=== PATIENT | female | born 1980 | race Hispanic/Latino ===

== ENCOUNTER 2018-04-05 07:56 | Emergency (ER) | payer BC, OTHER ==
[2018-04-05] MEDS ORDERED: KETOROLAC 30 MG/ML INJ ONE (08:38)
[2018-04-05] MEDS ORDERED: ONDANSETRON 4 MG/2 ML VIAL ONE (08:38)
[2018-04-05] MEDS ORDERED: NA CHLORIDE 0.9% 1,000 ML ONE (08:39)
[2018-04-05] MEDS ORDERED: FAMOTIDINE 20 MG/2 ML VIAL IV ONE (08:39)
[2018-04-05 09:47] LABS: Potassium 3.6 mmol/L (3.5-5.1); Sodium Level 137 mmol/L (136-145)
[2018-04-05 09:50] LABS: Albumin 3.7 g/dL (3.4-5.0); BUN Blood Urea Nitrogen 10 mg/dL (7-18); Bicarbonate 24 mmol/L (21-32); Lipase 94 U/L (73-393)
[2018-04-05 09:51] LABS: Amylase Level 27 U/L (25-115)
[2018-04-05 09:52] LABS: Bilirubin Direct 0.2 mg/dL (0-0.2)
[2018-04-05 09:53] LABS: ALT/SGPT 83 U/L (12-78); AST/SGOT 60 U/L (15-37)
[2018-04-05 09:54] LABS: Bilirubin Total 0.7 mg/dL (0.2-1.0)
[2018-04-05 09:55] LABS: Alkaline Phosphatase 55 U/L (45-117)
[2018-04-05 11:14] LABS: Absolute Lymphocytes (CBC) 0.4 K/uL (0.7-4.9); Absolute Monocytes 0.2 K/uL (0.1-1.3); Absolute Neutrophil 4.8 K/uL (1.8-8.0); Basophils % 0.5 % (0-1.3); Eosinophils % 0.4 % (0-4.4); Hematocrit 38.6 % (36.0-45.0); Lymphocytes % 6.8 % (15.3-44.8); MCH 30.1 pg (27.0-35.0); MCV 86.2 fL (80-100); MPV 9.7 fL (7.6-11.3); Monocytes % 4.4 % (3.3-12.3); RBC Red Blood Cell Count 4.48 M/uL (3.86-4.86)
[2018-04-05 11:19] LABS: Blood Morphology Comment NOT SEEN (NOT SEEN); Platelet Estimate ADEQ; Urine White Blood Cell Casts OK
[2018-04-05 11:31] LABS: Urine Bacteria <20 /HPF (<20); Urine RBC <5 /HPF (NONE SEEN)
[2018-04-05 11:32] LABS: Urine Culture Reflex Order NOT NEEDED
--- NOTE | 2018-04-05 12:04 | ER ---
Nurse's Notes [facility] Name: Rubina Guerra Age: 38 yrs Sex: Female : 1980 Arrival Date: 04/05/2018 Time: 08:03 Bed 19 Private MD: Hay Allen Diagnosis: Nausea and vomiting;Abdominal and pelvic pain Presentation: 04/05 08:19 Presenting complaint: Patient states: has had 10+ episodes of vomiting since last iw night, unable to tolerate fluids, also has bloating and burning upper abd pain, hx of IBS, no diarrhea, c/o headache, fatigue, chills, joint pain. Transition of care: patient was not received from another setting of care. Onset of symptoms was April 05, 2018. Risk Assessment: Do you want to hurt yourself or someone else? Patient reports no desire to harm self or others. Initial Sepsis Screen: Does the patient meet any 2 criteria? No. Patient's initial sepsis screen is negative. Does the patient have a suspected source of infection? No. Patient's initial sepsis screen is negative. Care prior to arrival: None. 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 - Social history:: Smoking status: Patient/guardian denies using tobacco. - Ebola Screening: : Patient negative for fever greater than or equal to 101.5 degrees Fahrenheit, and additional compatible Ebola Virus Disease symptoms Patient denies exposure to infectious person Patient denies travel to an Ebola-affected area in the 21 days before illness onset No symptoms or risks identified at this time. Screenin:30 Abuse screen: Denies threats or abuse. Nutritional screening: No deficits noted. em Tuberculosis screening: No symptoms or risk factors identified. Fall Risk None identified. Assessment: 11:26 Reassessment: see paper chart for assessment. em Vital Signs: 08:22 BP 161 / 74; Pulse 120; Resp 16 S; Temp 98.9(O); Pulse Ox 97% on R/A; Weight 116.57 kg; iw Height 5 ft. 4 in. (162.56 cm); Pain 03/14; 08:22 Body Mass Index 44.11 (116.57 kg, 162.56 cm) iw ED Course: 08:03 Patient arrived in ED. mr 08:04 Hay Allen DO is Private Physician. mr 08:08 Wilton Briones MD is Attending Physician. kdr 08:21 Triage completed. iw 08:22 Arm band placed on. iw 08:30 Patient has correct armband on for positive identification. Call light in reach. Side em rails up X 1. Side rails up X2. Adult w/ patient. 08:32 Koko Jacobs LVN is Primary Nurse. em 09:00 No provider procedures requiring assistance completed. Inserted saline lock: 20 gauge em in left antecubital area, using aseptic technique. Blood collected. 09:00 Initial lab(s) drawn, by me, sent to lab. em 10:57 Hay Allen DO is Referral Physician. kdr Administered Medications: 09:00 Drug: NS 0.9% 1000 ml Route: IV; Rate: 1 bolus; Site: left antecubital; iw 11:25 Follow up: IV Status: Completed infusion; IV Intake: 1000ml em : Drug: Zofran 4 mg Route: IVP; Site: left antecubital; iw :25 Follow up: Response: No adverse reaction; Nausea is decreased em :00 Drug: Pepcid 20 mg Route: IVP; Site: left antecubital; iw 11: Follow up: Response: No adverse reaction; Pain is decreased em :00 Drug: TORadol 30 mg Route: IVP; Site: left antecubital; iw 11:26 Follow up: Response: No adverse reaction; Pain is decreased em Intake: :25 IV: 1000ml; Total: 1000ml. em Outcome: :00 Discharged to home ambulatory. em 09:00 Condition: good 09:00 Discharge instructions given to patient, Instructed on discharge instructions, follow up and referral plans. medication usage, Demonstrated understanding of instructions, follow-up care, medications, Prescriptions given X 2. 10:58 Discharge ordered by . kdr 11:27 Patient left the ED. em Signatures: Wilton Briones MD MD kdr Rivera, Maria mr Reynaldo, Koko, LENS CLEANER LENS CLEANER Glory Blake, RN RN iw
--- NOTE | 2018-04-05 12:05 | EDPHYS ---
Physician Documentation [facility] Name: Rubina Guerra Age: 38 yrs Sex: Female : 1980 Arrival Date: 04/05/2018 Time: 08:03 Bed 19 Private MD: Alejandro [facility] ED Physician Wilton Briones HPI: 04/05 09:10 This 38 yrs old Female presents to ER via Ambulatory with complaints of kdr Nausea/Vomiting, Headache, Ear Pain. 09:10 The patient presents to the emergency department with nausea, that is moderate, kdr vomiting, that is intermittent, diarrhea, that is intermittent, abdominal pain, of the right upper quadrant and left upper quadrant. Onset: The symptoms/episode began/occurred last night. Possible causes: unknown, bad food exposure. The symptoms are aggravated by nothing. food , The symptoms are alleviated by nothing. Associated signs and symptoms: Pertinent positives: abdominal pain, diarrhea, nausea, vomiting, Pertinent negatives: constipation, dysuria, fever, GI bleeding, vaginal discharge. Severity of symptoms: At their worst the symptoms were moderate severe just prior to arrival, in the emergency department the symptoms have improved mildly. The patient has experienced a previous episode, approximately 17 years ago. The patient has not recently seen a physician. 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 - Social history:: Smoking status: Patient/guardian denies using tobacco. - Ebola Screening: : Patient negative for fever greater than or equal to 101.5 degrees Fahrenheit, and additional compatible Ebola Virus Disease symptoms Patient denies exposure to infectious person Patient denies travel to an Ebola-affected area in the 21 days before illness onset No symptoms or risks identified at this time. ROS: 09:10 Constitutional: Negative for fever, chills, and weight loss, Eyes: Negative for injury, kdr pain, redness, and discharge, ENT: Negative for injury, pain, and discharge, Neck: Negative for injury, pain, and swelling, Cardiovascular: Negative for chest pain, palpitations, and edema, Respiratory: Negative for shortness of breath, cough, wheezing, and pleuritic chest pain, Back: Negative for injury and pain, : Negative for injury, bleeding, discharge, and swelling, MS/Extremity: Negative for injury and deformity, Skin: Negative for injury, rash, and discoloration, Psych: Negative for depression, anxiety, suicide ideation, homicidal ideation, and hallucinations, Allergy/Immunology: Negative for hives, rash, and allergies, Endocrine: Negative for neck swelling, polydipsia, polyuria, polyphagia, and marked weight changes, Hematologic/Lymphatic: Negative for swollen nodes, abnormal bleeding, and unusual bruising. 09:10 Abdomen/GI: Positive for abdominal pain, nausea, vomiting, and diarrhea, Negative for constipation, abdominal distension, anorexia, dysphagia, hematemesis, black/tarry stool, rectal pain, rectal bleeding, bowel incontinence. 09:10 Neuro: Positive for headache, Hurst all over - even her hair when she put it up.. Exam: 09:10 Constitutional: This is a well developed, well nourished patient who is awake, alert, kdr and in no acute distress. Head/Face: Normocephalic, atraumatic. Eyes: Pupils equal round and reactive to light, extra-ocular motions intact. Lids and lashes normal. Conjunctiva and sclera are non-icteric and not injected. Cornea within normal limits. Periorbital areas with no swelling, redness, or edema. Neck: Trachea midline, no thyromegaly or masses palpated, and no cervical lymphadenopathy. Supple, full range of motion without nuchal rigidity, or vertebral point tenderness. No Meningismus. Chest/axilla: Normal chest wall appearance and motion. Nontender with no deformity. No lesions are appreciated. Cardiovascular: Regular rate and rhythm with a normal S1 and S2. No gallops, murmurs, or rubs. Normal PMI, no JVD. No pulse deficits. Respiratory: Lungs have equal breath sounds bilaterally, clear to auscultation and percussion. No rales, rhonchi or wheezes noted. No increased work of breathing, no retractions or nasal flaring. Back: No spinal tenderness. No costovertebral tenderness. Full range of motion. Skin: Warm, dry with normal turgor. Normal color with no rashes, no lesions, and no evidence of cellulitis. MS/ Extremity: Pulses equal, no cyanosis. Neurovascular intact. Full, normal range of motion. Neuro: Awake and alert, GCS 15, oriented to person, place, time, and situation. Cranial nerves II-XII grossly intact. Motor strength 5/5 in all extremities. Sensory grossly intact. Cerebellar exam normal. Normal gait. Psych: Awake, alert, with orientation to person, place and time. Behavior, mood, and affect are within normal limits. 09:10 Abdomen/GI: Inspection: abdomen appears normal, obese Bowel sounds: active, all quadrants, Palpation: soft, mild abdominal tenderness, in the epigastric area, right upper quadrant and left upper quadrant, rebound tenderness, is not appreciated. Vital Signs: 08:22 BP 161 / 74; Pulse 120; Resp 16 S; Temp 98.9(O); Pulse Ox 97% on R/A; Weight 116.57 kg; iw Height 5 ft. 4 in. (162.56 cm); Pain 8/10; 08:22 Body Mass Index 44.11 (116.57 kg, 162.56 cm) iw MDM: 09:10 Data reviewed: vital signs, nurses notes. kdr 10:56 ED course: The patient is feeling much better and has had no further n/v/d, pain 10. kdr Asking when she can go.. 10:58 Patient medically screened. kdr 04/05 08:19 Order name: Amylase, Serum iw 04/05 08:19 Order name: Basic Metabolic Panel iw 04/05 08:19 Order name: CBC with Diff 04/05 08:19 Order name: Creatinine for Radiology iw 04/05 08:19 Order name: Hepatic Function iw 04/05 08:19 Order name: Lipase iw 04/05 08:19 Order name: Urine Microscopic Only iw 04/05 08:19 Order name: IV Saline Lock; Complete Time: 11:26 iw 04/05 08:19 Order name: Labs collected and sent; Complete Time: 11:26 iw 04/05 08:19 Order name: Urine Dipstick-Ancillary (obtain specimen); Complete Time: 11:26 iw Administered Medications: 09:00 Drug: NS 0.9% 1000 ml Route: IV; Rate: 1 bolus; Site: left antecubital; iw 11:25 Follow up: IV Status: Completed infusion; IV Intake: 1000ml em 09:00 Drug: Zofran 4 mg Route: IVP; Site: left antecubital; iw 11:25 Follow up: Response: No adverse reaction; Nausea is decreased em 09:00 Drug: Pepcid 20 mg Route: IVP; Site: left antecubital; iw 11:26 Follow up: Response: No adverse reaction; Pain is decreased em 09:00 Drug: TORadol 30 mg Route: IVP; Site: left antecubital; iw 11:26 Follow up: Response: No adverse reaction; Pain is decreased em Disposition: 04/05/18 10:58 Discharged to Home. Impression: Nausea and vomiting, Abdominal and pelvic pain. - Condition is Stable. - Discharge Instructions: Abdominal Pain, Adult, [id number]. - Prescriptions for promethazine 25 mg Oral Tablet - take 1 tablet by ORAL route every 6 hours As needed; 20 tablet. Bentyl 20 mg Oral Tablet - take 1 tablet by ORAL route every 6 hours As needed; 20 tablet. - Medication Reconciliation Form, Thank You Letter, Antibiotic Education, Prescription Opioid Use form. - Follow up: Hay Allen DO; When: 2 - 3 days; Reason: If symptoms return, Further diagnostic work-up, Recheck today's complaints, Continuance of care, Re-evaluation by your physician. - Problem is new. - Symptoms have improved. Signatures: Dispatcher [employer] Witlon Goncalves MD MD kdr Munoz, Edgar, WHEEL PRESSER WHEEL PRESSER em Glory Hall, RN RN iw Corrections: (The following items were deleted from the chart) 11:27 10:58 04/05/2018 10:58 Discharged to Home. Impression: Nausea and vomiting; Abdominal em and pelvic pain. Condition is Stable. Forms are Medication Reconciliation Form, Thank You Letter, Antibiotic Education, Prescription Opioid Use. Follow up: Hay Allen; When: 2 - 3 days; Reason: If symptoms return, Further diagnostic work-up, Recheck today's complaints, Continuance of care, Re-evaluation by your physician. Problem is new. Symptoms have improved. kdr
[2018-04-05 13:04] LABS: Urine Blood NEGATIVE (NEG); Urine Glucose NEGATIVE (NEG); Urine Protein TRACE (NEG); Urine Specific Gravity 1.015 (1.005-1.030); Urine pH 8.5 (5.0-7.0)
[2018-04-05 13:48] LABS: Protein, Total 7.5 g/dL (6.4-8.2)
[2018-04-05 13:49] LABS: Glucose Level 134 mg/dL (74-106)
== END 2018-04-05 11:27 | disposition home or self-care (01) ==
LOC: ER 07:56
DX: R11.2 Nausea with vomiting, unspecified (principal); R10.12 Left upper quadrant pain; R10.11 Right upper quadrant pain; R10.2 Pelvic and perineal pain
CPT/HCPCS: 36415; 80048; 80076; 81003; 81015; 82150; 83690; 85025; 87086; 87088; 96361; 96374; 96375; 99284; J2405; J7030

== ENCOUNTER 2019-09-01 20:32 | Emergency (ER) | payer BC, OTHER ==
--- NOTE | 2019-09-01 22:41 | EDPHYS ---
Physician Documentation [facility] Name: Rubina Guerra Age: 39 yrs Sex: Female : 1980 Arrival Date: 09/01/2019 Time: 20:34 Bed 11 Private MD: ED Physician Ike Saldana HPI: 09/01 22:55 This 39 yrs old Female presents to ER via Wheelchair with complaints of Back la1 Pain. 22:55 The patient presents with pain and spasm, pain. The symptoms are located in the low la1 back. Onset: The symptoms/episode began/occurred this morning. The pain radiates to the right leg and left leg. Associated signs and symptoms: Pertinent negatives: abdominal pain, incontinence, numbness, tingling, urinary retention, weakness. The problem was sustained when bending over. Modifying factors: The patient symptoms are alleviated by remaining still, the patient symptoms are aggravated by any movement, bending, coughing, movement. Severity of symptoms: At their worst the symptoms were moderate, in the emergency department the symptoms have improved. The patient has experienced similar episodes in the past. 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 - Coronavirus screen:: The patient has NOT traveled to [place], [place], or [place] in the past 14 days. The patient has NOT had contact with known/suspected case of Coronavirus?. - Social history:: Smoking status: Patient denies any tobacco usage or history of. - Ebola Screening: : Patient negative for fever greater than or equal to 101.5 degrees Fahrenheit, and additional compatible Ebola Virus Disease symptoms Patient denies exposure to infectious person Patient denies travel to an Ebola-affected area in the 21 days before illness onset No symptoms or risks identified at this time. ROS: 22:56 Constitutional: Negative for fever, chills, and weight loss, Eyes: Negative for injury, la1 pain, redness, and discharge, ENT: Negative for injury, pain, and discharge, Neck: Negative for injury, pain, and swelling, Cardiovascular: Negative for chest pain, palpitations, and edema, Respiratory: Negative for shortness of breath, cough, wheezing, and pleuritic chest pain, Abdomen/GI: Negative for abdominal pain, nausea, vomiting, diarrhea, and constipation, : Negative for injury, bleeding, discharge, and swelling, MS/Extremity: Negative for injury and deformity, Skin: Negative for injury, rash, and discoloration, Neuro: Negative for headache, weakness, numbness, tingling, and seizure. 22:56 Back: Positive for pain at rest, pain with movement. Exam: 22:56 Constitutional: This is a well developed, well nourished patient who is awake, alert, la1 and in no acute distress. Eyes: . Cornea within normal limits. Periorbital areas with no swelling, redness, or edema. ENT: Mucous membranes moist. Neck: Trachea midline No Meningismus. Chest/axilla: Normal chest wall appearance and motion. Nontender with no deformity. No lesions are appreciated. Cardiovascular: Regular rate and rhythm with a normal S1 and S2. Respiratory: Lungs have equal breath sounds bilaterally, clear to auscultation 22:56 Back: ROM is painful, with all movement, normal spinal alignment noted, CVA tenderness, is absent, muscle spasm, is appreciated in the right low back, Straight leg raises: pain bilaterally. 22:56 Neuro: Orientation: is normal, Mentation: is normal, Memory: is normal, Cranial nerves: CN II- XII are normal as tested, Motor: is normal, Gait: is steady. Vital Signs: 21:21 BP 120 / 72; Pulse 82; Resp 17 S; Temp 98.8(O); Pulse Ox 100% on R/A; Weight 122.47 kg ca1 (R); Height 5 ft. 4 in. (162.56 cm) (R); 23:07 Pain 5/10; bb3 23:07 Pain 6/10; bb3 23:08 Pulse 88; Resp 17; Pulse Ox 99% ; Pain 6/10; bb3 21:21 Body Mass Index 46.34 (122.47 kg, 162.56 cm) ca1 MDM: 22:10 Patient medically screened. la1 22:39 Data reviewed: vital signs, nurses notes, and as a result, I will discharge patient. la1 Data interpreted: Pulse oximetry: on room air is 100 %. Interpretation: normal. Counseling: I had a detailed discussion with the patient and/or guardian regarding: the historical points, exam findings, and any diagnostic results supporting the discharge/admit diagnosis, the need for outpatient follow up, a family practitioner, to return to the emergency department if symptoms worsen or persist or if there are any questions or concerns that arise at home. Special discussion: Based on the patient's Hx, exam, and Dx evaluation, there is no indication for emergent surgery or inpatient Tx. It is understood by the patient/guardian that if the Sx's persist or worsen they need to return immediately for re-evaluation. Administered Medications: 22:47 Drug: Lidoderm 5 % (700 mg/patch) 1 patches Route: Topical; Site: affected area; bb3 23:07 Follow up: Pain 5/10 Adult; Response: No adverse reaction; Marked relief of symptoms; bb3 Pain is decreased 22:48 Drug: [place] (7.5 mg-325 mg) 1 tabs Route: PO; bb3 23:08 Follow up: Pulse 88 bpm; Resp 17 bpm; Pulse Ox 99% ; Pain 6/10 Adult bb3 23:08 Follow up: Response: No adverse reaction; Marked relief of symptoms; Pain is decreased bb3 22:48 Drug: Flexeril 10 mg Route: PO; bb3 23:07 Follow up: Pain 6/10 Adult; Response: No adverse reaction; Marked relief of symptoms; bb3 Pain is decreased Disposition: 09/02 05:19 Co-signature as Attending Physician, Ike Saldana MD I agree with the assessment and tw4 plan of care. Disposition: 09/01/19 22:40 Discharged to Home. Impression: Low back pain. - Condition is Stable. - Discharge Instructions: Back Pain, Adult, Musculoskeletal Pain, Back Injury Prevention, Uhlk-pe-Tyaq, Back Exercises, Mhfw-[id number]. - Prescriptions for Tylenol- Codeine #3 300-30 mg Oral Tablet - take 2 tablet by ORAL route every 6 hours As needed; 6 tablet. Cyclobenzaprine 10 mg Oral Tablet - take 1 tablet by ORAL route every 8 hours As needed; 30 tablet. Medrol (Ayan) 4 mg Oral Tablets, Dose Pack - take 1 tablet by ORAL route as directed - follow package instructions; 1 packet. - Medication Reconciliation Form, Thank You Letter, Prescription Opioid Use, Work release form form. - Follow up: Private Physician; When: 2 - 3 days; Reason: Recheck today's complaints, Re-evaluation by your physician. Follow up: Emergency Department; When: As needed; Reason: Worsening of condition. - Problem is new. - Symptoms are unchanged. Signatures: Manju Hyman RN RN fc Chris, Dustin, MONUMENTAL STONEMASON-C MONUMENTAL STONEMASON-Cla1 Ike Saldana MD MD tw4 Huong Bender RN RN ca1 Melba Pereyra bb3 Corrections: (The following items were deleted from the chart) 09/01 23:09 22:40 09/01/2019 22:40 Discharged to Home. Impression: Low back pain. Condition is bb3 Stable. Forms are Medication Reconciliation Form, Thank You Letter, Antibiotic Education, Prescription Opioid Use. Follow up: Private Physician; When: 2 - 3 days; Reason: Recheck today's complaints, Re-evaluation by your physician. Follow up: Emergency Department; When: As needed; Reason: Worsening of condition. Problem is new. Symptoms are unchanged. la1 23:14 23:09 09/01/2019 22:40 Discharged to Home. Impression: Low back pain. Condition is fc Stable. Discharge Instructions: Back Pain, Adult, Musculoskeletal Pain, Back Injury Prevention, [id number]-fm-Ymdr, Back Exercises, Rtwa-[id number]-Rltc. Prescriptions for Tylenol-Codeine #3 300-30 mg Oral Tablet - take 2 tablet by ORAL route every 6 hours As needed; 6 tablet, Cyclobenzaprine 10 mg Oral Tablet - take 1 tablet by ORAL route every 8 hours As needed; 30 tablet, Medrol (Ayan) 4 mg Oral Tablets, Dose Pack - take 1 tablet by ORAL route as directed - follow package instructions; 1 packet. and Forms are Medication Reconciliation Form, Thank You Letter, Prescription Opioid Use. Follow up: Private Physician; When: 2 - 3 days; Reason: Recheck today's complaints, Re-evaluation by your physician. Follow up: Emergency Department; When: As needed; Reason: Worsening of condition. Problem is new. Symptoms are unchanged. bb3
--- NOTE | 2019-09-01 22:41 | ER ---
Nurse's Notes [facility] Name: Rubina Guerra Age: 39 yrs Sex: Female : 1980 Arrival Date: 09/01/2019 Time: 20:34 Bed 11 Private MD: Diagnosis: Low back pain Presentation: 09/01 21:17 Presenting complaint: Patient states: "I think I pulled my back, I bent over and then I ca1 came back up then it all started. I got low back pains, it hurts to breathe, to move, to twist my body, hurts to sit" Denies urinary symptoms. Transition of care: patient was not received from another setting of care. Onset of symptoms was September 01, 2019. Risk Assessment: Do you want to hurt yourself or someone else? Patient reports no desire to harm self or others. Initial Sepsis Screen: Does the patient meet any 2 criteria? No. Patient's initial sepsis screen is negative. Does the patient have a suspected source of infection? No. Patient's initial sepsis screen is negative. Care prior to arrival: None. 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 - Coronavirus screen:: The patient has NOT traveled to [place], [place], or [place] in the past 14 days. The patient has NOT had contact with known/suspected case of Coronavirus?. - Social history:: Smoking status: Patient denies any tobacco usage or history of. - Ebola Screening: : Patient negative for fever greater than or equal to 101.5 degrees Fahrenheit, and additional compatible Ebola Virus Disease symptoms Patient denies exposure to infectious person Patient denies travel to an Ebola-affected area in the 21 days before illness onset No symptoms or risks identified at this time. Assessment: 22:20 General: Appears uncomfortable, Behavior is calm, cooperative, appropriate for age, bb3 Smells of Reports. Pain: Complains of pain in lumbar area, left low back and right low back Pain currently is 6 out of 10 on a pain scale. Pain began gradually, Is continuous. Neuro: No deficits noted. Vital Signs: 21:21 BP 120 / 72; Pulse 82; Resp 17 S; Temp 98.8(O); Pulse Ox 100% on R/A; Weight 122.47 kg ca1 (R); Height 5 ft. 4 in. (162.56 cm) (R); 23:07 Pain 5/10; bb3 23:07 Pain 6/10; bb3 23:08 Pulse 88; Resp 17; Pulse Ox 99% ; Pain 6/10; bb3 21:21 Body Mass Index 46.34 (122.47 kg, 162.56 cm) ca1 ED Course: 20:34 Patient arrived in ED. jg7 21:20 Triage completed. ca1 21:21 Arm band placed on right wrist. ca1 22:10 Dustin Perez FNP-C is [facility]. la1 22:10 Ike Saldana MD is Attending Physician. la1 Administered Medications: 22:47 Drug: Lidoderm 5 % (700 mg/patch) 1 patches Route: Topical; Site: affected area; bb3 23:07 Follow up: Pain 5/10 Adult; Response: No adverse reaction; Marked relief of symptoms; bb3 Pain is decreased 22:48 Drug: [place] (7.5 mg-325 mg) 1 tabs Route: PO; bb3 23:08 Follow up: Pulse 88 bpm; Resp 17 bpm; Pulse Ox 99% ; Pain 6/10 Adult bb3 23:08 Follow up: Response: No adverse reaction; Marked relief of symptoms; Pain is decreased bb3 22:48 Drug: Flexeril 10 mg Route: PO; bb3 23:07 Follow up: Pain 6/10 Adult; Response: No adverse reaction; Marked relief of symptoms; bb3 Pain is decreased Outcome: 22:40 Discharge ordered by . la1 23:09 Patient left the ED. bb3 23:14 Patient left the ED. fc Signatures: Manju Hyman RN RN fc Dustin Perez FNP-C FNP-Michael1 Huong Bender RN RN ca1 Melba Pereyra bb3 Ruby [id number]
[2019-09-01] MEDS ORDERED: HYDROCODONE/APAP 7.5/325 MG TAB ONE (22:43)
[2019-09-01] MEDS ORDERED: CYCLOBENZAPRINE 10 MG TAB ONE (22:43)
[2019-09-01] MEDS ORDERED: LIDOCAINE 4% PATCH ONE (22:44)
[2019-09-01 23:13] VITALS: BP 120/72; TEMP 98.8
[2019-09-01 23:16] VITALS: O2SAT 99
== END 2019-09-01 23:14 | disposition home or self-care (01) ==
LOC: ER 20:32
DX: M54.5 Low back pain (principal)
CPT/HCPCS: 99282